=== PATIENT | male | born 1980 | race African-American/Black ===

== ENCOUNTER 2023-10-30 13:08 | Emergency (ER) | payer SELFPAY ==
[2023-10-30 13:09] VITALS: BP 144/85; PULSE 81; RESP 16; TEMP 36.4; O2SAT 99; BMI 37.3
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
[2023-10-30] MEDS: Naproxen 500 MG Tablet PO (15:10)
== END 2023-10-30 15:57 | disposition home or self-care (01) ==
PROVIDERS: Emergency Provider Emergency Medicine; Visit Provider Emergency Medicine
DX: S39.012A Strain of muscle, fascia and tendon of lower back, initial encounter (principal); S16.1XXA Strain of muscle, fascia and tendon at neck level, initial encounter; S09.90XA Unspecified injury of head, initial encounter; V43.52XA Car driver injured in collision with other type car in traffic accident, initial encounter; G47.33 Obstructive sleep apnea (adult) (pediatric)
CPT/HCPCS: 70450; 72100; 72125; 99282